=== PATIENT | female | born 1990 | race Caucasian/White ===

== ENCOUNTER 2019-04-02 10:18 | Inpatient (IN) | payer MEDICAID ==
[~2019-04-02] VITALS: Ht 165.1 cm; Wt 104.0 kg
[2019-04-02] MEDS ORDERED: PNV11TAB PO (10:55)
[2019-04-02] MEDS ORDERED: AMPICILLIN 2 GM/NS (PMX) 100 ML IV ONE ×2 (11:00→18:30)
[2019-04-02] MEDS ORDERED: OXYTOCIN 30 UNITS/LR 500 ML IV SCH ×3 (11:00→23:52)
[2019-04-02] MEDS ORDERED: LIDOCAINE 1% (MPF) 30 ML INJ INJ PRN (11:00)
[2019-04-02] MEDS ORDERED: OXYTOCIN 30 UNITS/LR 500 ML IV PRN (11:00)
[2019-04-02] MEDS ORDERED: BUTORPHANOL 2 MG INJ IV PRN ×2 (11:00)
[2019-04-02] MEDS ORDERED: MISOPROSTOL 200 MCG TAB PR PRN (11:00)
[2019-04-02] MEDS ORDERED: CARBOPROST 250 MCG INJ IM PRN (11:00)
[2019-04-02] MEDS ORDERED: METHYLERGONOVINE 0.2 MG INJ IM PRN (11:00)
--- NOTE | 2019-04-02 11:01 | HP ---
Date/Time of Note Date/Time of Note DATE: 04/02/19 TIME: 10:58 OB - History Hx of Present Free Text/Dictation 29-year-old female 1 para 0 at 38 weeks and 1 day gestation admitted complaining of spontaneous rupture of membrane which occurred at 5 AM and also complaint of a onset of uterine contractions at that time Chief Complaint: Able contractions and spontaneous rupture of membrane Last Menstrual Period: Apr 21, 2018 Estimated Due Date: Apr 15, 2019 : 1 Para: 0 Care: Good Care Ultrasounds: Normal mid trimester US Obstetrical Complications: None Medical Complications: Other Past Family/Social History * Past Medical, Surgical, Family and Obstetric Histories reviewed from chart. Blood Type: A+ Rubella: immune RPR/VDRL: Negative GBS Status: Unknown (At the time of cooker sulfate of this note) HBsAG: Negative OB Admission Exam Vital Signs Vital Signs See nurse's notes Physical Exam HEENT: WNL Heart: Rhythm Normal Lungs: Clear, Equal Abdomen: WNL Extremities: Normal Reflexes: Normal Cervical Dilatation: 4cm Effacement: 75% Station: -3 Membranes: Ruptured (Questionable) Heart Rate: 140's Accelerations: Accelerations Present Decelerations: No Decelerations Varibility: Marked Contractions on Admission: < 5 Minutes Apart Date/Time Contractions Began: 04/02/2019 at 5 AM Frequency of Contractions: Every 2 to 3 minutes Duration: Over 45 seconds Intensity: Firm OB Assessment/Plan Other Assessment: Term gestation in labor contractions with possible spontaneous rupture of membrane Other plan: Proceed with spontaneous labor KEIRA CHAHAL MD Apr 02, 2019 11:01
[2019-04-02 11:05] VITALS: Ht 165.1 cm; Wt 104.0 kg
[2019-04-02] MEDS ORDERED: LEVO75TA5 PO (11:07)
[2019-04-02] MEDS: LACTATED RINGER'S 1,000 ML IV SCH ×2 (11:21→12:30)
--- NOTE | 2019-04-02 11:54 | PREAC ---
Date/Time of Note Date/Time of Note DATE: 04/02/19 TIME: 11:53 Anesthesia Eval and Record Evaluation Time Pre-Procedure Interview DATE: 04/02/19 TIME: 11:53 Age 29 Sex female NPO: 8 hrs Preoperative diagnosis intrauterine Planned procedure labor epidural Past Medical History Past Medical History: Includes Endo: Hypothyroid : : (1), Para: (0) Surgery & Anesthesia Issues No known issue Meds Anticoagulation: No Beta Sarah within 24 hr: No Reason Beta Sarah not given: Pt. not on B-Sarah Reported Medications Levothyroxine Sodium* (Levothyroxine Sodium*) 75 Mcg Tablet, 75 MCG PO bedtime, #30 TAB 04/02/19 [id number] ( 19) 1 Each Tablet, 1 TAB PO DAILY, TAB 04/02/19 Current Medications Lactated Ringer's 1,000 ml @ 125 mls/hr Q8H IV Last administered on 04/02/19at 11:21; Admin Dose 125 MLS/HR; Start 04/02/19 at 10:52 Ampicillin 100 ml @ 100 mls/hr ONCE ONCE IV ; Start 04/02/19 at 11:00; Stop 04/02/19 at 11:59 Ampicillin 50 ml @ 100 mls/hr Q4H IV ; Start 04/02/19 at 15:00 Butorphanol Tartrate (Stadol) 1 mg Q2H PRN IV .PAIN SCALE 1-5; Start 04/02/19 at 11:00 Butorphanol Tartrate (Stadol) 2 mg Q2H PRN IV .PAIN SCALE 6-10; Start 04/02/19 at 11:00 Lidocaine (Xylocaine 1% (Mpf)) 30 ml ONCE PRN INJ .EPISIOTOMY; Start 04/02/19 at 11:00 Oxytocin/Lactated Ringer's 500 ml @ 500 mls/hr ONCE POST IV ; Start 04/02/19 at 11:00 Oxytocin/Lactated Ringer's 500 ml @ 125 mls/hr POST IV ; Start 04/02/19 at 11:00 Oxytocin/Lactated Ringer's 500 ml @ 0 mls/hr ONCE PRN IV .VAGINAL BLEEDING; Start 04/02/19 at 11:00 Methylergonovine Maleate (Methergine) 0.2 mg ONCE PRN IM .VAGINAL BLEEDING; Start 04/02/19 at 11:00 Carboprost Tromethamine (Hemabate) 250 mcg ONCE PRN IM .VAGINAL BLEEDING; Start 04/02/19 at 11:00 Misoprostol (Cytotec) 1,000 mcg ONCE PRN NC .VAGINAL BLEEDING; Start 04/02/19 at 11:00 Meds reviewed: Yes Allergies Coded Allergies: No Known Allergy (Unverified , 04/02/19) Allergies Reviewed: Yes Labs/Studies Labs Reviewed: Reviewed by anesthesiologist Result Diagram: 04/02/19 1130 Laboratory Tests 04/02/19 11:30 test: N/A Pre-procedure Exam Airway: Adequate mouth opening, Adequate thyromental dist Mallampati: Mallampati II Teeth: Normal Lung: Normal Heart: Normal ASA Physical Status ASA physical status: 2 Emergency: None Planned Anesthetic Neuraxial: Epidural Planned Pain Management Epidural, Parenteral pain med Pre-operative Attestations Prior to commencing anesthesia and surgery, the patient was re-evaluated, there was verification of: *The patient's identity *The results of appropriate recent lab work and preoperative vital signs *The above evaluation not changing prior to induction *Anesthetic plan, risk benefits, alternative and complications discussed with patient/family; questions answered; patient/family understands, accepts and wishes to proceed. REGINE LIMA MD Apr 02, 2019 11:54
[2019-04-02] MEDS ORDERED: FENTAnyl 2MCG/ML-ROPIV 0.2% 100 ML ONE (12:05)
--- NOTE | 2019-04-02 12:35 | PAC ---
Date/Time of Note Date/Time of Note DATE: 04/02/19 TIME: 12:35 Post-Anesthesia Notes Post-Anesthesia Note Activity: WNL Respiratory function: WNL Cardiovascular function: WNL Mental status: Baseline Pain reasonably controlled: Yes Hydration appropriate: Yes Nausea/Vomiting absent: Yes Comments BP: 122/63 HR: 90 RR: 16 T: 98 SaO2: 99% REGINE LIMA MD Apr 02, 2019 12:35
[2019-04-02] MEDS ORDERED: DIPHENHYDRAMINE 50 MG INJ IV PRN (13:00)
[2019-04-02] MEDS ORDERED: ONDANSETRON 4 MG INJ IV PRN (13:00)
[2019-04-02] MEDS ORDERED: FENTAnyl 2MCG/ML-ROPIV 0.2% 100 ML BAG EPI SCH (13:00)
[2019-04-02] MEDS ORDERED: NALOXONE (0.4 MG/ML) INJ IV PRN (13:00)
[2019-04-02] MEDS ORDERED: MINERAL OIL LIGHT 10 ML VIAL TOP ONE (13:30)
[2019-04-02] MEDS ORDERED: AMPICILLIN 1 GM/NS (PMX) 50 ML IV SCH ×2 (15:00→22:30)
--- NOTE | 2019-04-02 21:20 | LDN ---
Date/Time of Note Date/Time of Note DATE: 04/02/19 TIME: 21:17 Delivery Summary Weeks of Gestation Term gestation Placenta Delivered: Spontaneously Meconium: none Episiotomy: No Laceration repair: First-degree laceration repair with 3-0 chromic Anesthesia type: Epidural Estimated blood loss: 250 Sponge & Needle done & correct: Yes All needle counts correct: Yes Any foreign bodies felt in the: No Delivery Information Sex Sex: female Apgars 1 Minute: 8 5 Minute: 9 Suctioning Nose & mouth suctioned at jeni: Yes Delee suction performed: No Umbilical Cord Umbilical cord with: 3 Vessels Cord presentations: nuchal cord (X1 around the neck manually reduced) Cord Blood was obtained: Yes Mother & Baby Disposition Disposition Baby's weight 8 pounds 6 ounces/ 3790 g Patient received Methergine IM x1 dose and Cytotec 1000 mcg per rectum for uterine atony Mom & Baby to Maternity; Good: Yes Baby to NICU: No Copies To: CC: KEIRA CHAHAL MD ; MAURICE CARTER MD Apr 02, 2019 21:20
[2019-04-02 22:45] VITALS: BP 115/56; PULSE 110; RESP 19
[2019-04-02] MEDS: LACTATED RINGER'S 1,000 ML IV* SCH (23:52)
[2019-04-03] MEDS ORDERED: SENNA/DOCUSATE NA (8.6MG/50MG) TAB PO PRN
[2019-04-03] MEDS ORDERED: CARBOPROST 250 MCG INJ IM PRN
[2019-04-03] MEDS ORDERED: METHYLERGONOVINE 0.2 MG INJ IM PRN
[2019-04-03] MEDS ORDERED: MISOPROSTOL 200 MCG TAB PR PRN
[2019-04-03] MEDS ORDERED: OXYTOCIN 30 UNITS/LR 500 ML IV PRN
[2019-04-03] MEDS ORDERED: DIBUCAINE 1% 30 GM OINT TOP PRN
[2019-04-03] MEDS ORDERED: ACETAMINOPHEN 325 MG TAB PO PRN ×2
[2019-04-03] MEDS ORDERED: BENZOCAINE 20% 56 ML SPRAY TOP PRN
[2019-04-03] MEDS ORDERED: WITCH HAZEL/GLYCERIN PAD PR PRN
[2019-04-03] MEDS ORDERED: LANOLIN HPA 1 PKT TOP PRN
[2019-04-03] MEDS ORDERED: MAGNESIUM HYDROXIDE 30ML CUP PO PRN
[2019-04-03] MEDS ORDERED: ONDANSETRON 4 MG INJ IV PRN
[2019-04-03] MEDS ORDERED: LEVOTHYROXINE 75 MCG TAB PO ONE
[2019-04-03 00:20] VITALS: BP 112/66; PULSE 111; RESP 18
[2019-04-03] MEDS: IBUPROFEN 600 MG TAB PO PRN ×4 (00:28→23:51)
[2019-04-03 03:45] VITALS: BP 116/57; PULSE 97; RESP 17
[2019-04-03 07:45] VITALS: BP 107/53; PULSE 94; RESP 18
[2019-04-03] MEDS: LACTATED RINGER'S 1,000 ML IV* SCH ×2 (07:52→15:52)
[2019-04-03] MEDS ORDERED: IBUP-1542 PO (13:55)
--- NOTE | 2019-04-03 14:57 | DS ---
Date/Time of Note Date/Time of Note Home today or next day DATE: 04/03/19 TIME: 14:56 Obstetrical Discharge Record Final Diagnosis Final Diagnosis: Term delivered Other Final Diagnosis Status post vaginal delivery Vaginal Delivery Obstetrical Delivery: Spontaneous, Laceration, Repaired Condition on Discharge Physical Assessment Last Vitals: See nurse's notes Voiding: Yes Bowel Movement: Yes Breast: Soft, non-tender, Filling Fundus: Firm Abdomen and Incision: Abdomen is soft with firm fundus abdomen appears nontender Episiotomy: Perineum is healing well and appears clean Calf Tenderness: No Patient Condition: Good KEIRA CHAHAL MD Apr 03, 2019 14:57
--- NOTE | 2019-04-03 14:58 | PD.PPDC ---
FINISH FILER Discharge Instruction Provider Information Physician Information 29-year-old female had vaginal delivery Diagnosis [id number] Final Diagnosis: [id number] Status post vaginal delivery Condition [id number] Patient Condition: Meveg9i Good Diet Gaulx1Fu Diet: [id number] Resume Regular Diet Activity/Restrictions [id number] Activity: Zgivv6u Normal Activity May Shower [id number] Restrictions: Fmqpd2r Nothing in the Vagina Nctue5Sm Return to Work or School: [id number] May 10, 2019 Follow-up Follow-up with Physician: 2, 4, Week/Weeks (In clinic) Return to clinic for [id number] OB Instructions: Vyenr1r Breast Tenderness Depression Comment: Pelvic rest for 6 weeks KEIRA CHAHAL MD Apr 03, 2019 14:58
[2019-04-03 15:45] VITALS: BP 114/77; PULSE 89; RESP 18
[2019-04-03] MEDS: CEPHALEXIN 500 MG CAP PO SCH ×2 (18:19→23:51)
[2019-04-03 20:45] VITALS: BP 123/74; PULSE 87; RESP 17
[2019-04-03] MEDS ORDERED: LEVOTHYROXINE 75 MCG TAB PO SCH (21:00)
[2019-04-04 04:03] VITALS: BP 121/66; PULSE 91; RESP 18
[2019-04-04] MEDS: IBUPROFEN 600 MG TAB PO PRN (05:41)
[2019-04-04] MEDS: CEPHALEXIN 500 MG CAP PO SCH (05:41)
[2019-04-04 08:00] VITALS: BP 107/60; PULSE 77; RESP 18
--- NOTE | 2019-04-05 15:30 | DELSUM ---
Delivery Summary A-C Datetime Report Generated by CPN: 04/05/2019 15:29 DELIVERY PERSONNEL Cigarette Tester: Danielle Caban MATERNAL INFORMATION Delivery Anesthesia: Epidural Medications in Delivery: 30U PITOCIN LR 500 ML, 0.2MG METHERGINE, 1000 MCG CYTOTEC Delivery QBL (ml): 250 Placenta Cultured: No Maternal Complications: Other Other Maternal Complications: hypothyroid LABOR SUMMARY EDC: 04/15/2019 00:00 No. Babies in Womb: 1 Attempted: No Labor Anesthesia: Epidural LABOR INFORMATION Reason for Induction: Not Applicable Onset of Labor: 04/02/2019 05:00 Complete Dilatation: 04/02/2019 18:02 Oxytocin: N/A Group B Beta Strep: Negative Antibiotics # of Doses: 1 Antibiotics Time of Last Dose: 04/02/2019 18:40 Steroids Given: None Reason Steroids Not Administered: Not Applicable MEMBRANES Membranes Rupture Method: Spontaneous Rupture of Membranes: 04/02/2019 05:00 Length of Rupture (hr): 15.65 Amniotic Fluid Color: Clear Amniotic Fluid Amount: Moderate Amniotic Fluid Odor: Normal STAGES OF LABOR Stage 1 hr: 13 Stage 1 min: 2 Stage 2 hr: 2 Stage 2 min: 37 Stage 3 hr: 0 Stage 3 min: 4 Total Time in Labor hr: 15 Total Time in Labor min: 43 VAGINAL DELIVERY Episiotomy: None Laceration Extension: First Degree Laceration Type: Perineal Laceration Repair: Yes Initial Vag Sponge Count: 10 Final Vag Sponge Count: 10 Initial Vag Sharps Count: 1 Final Vag Sharps Count: 2 Sponge Count Correct: Yes; Vaginal Sweep Performed Sharps Count Correct: Yes BABY A INFORMATION Infant Delivery Date/Time: 04/02/2019 20:39 Method of Delivery: Vaginal Born in Route : No : N/A Forceps: N/A Vacuum Extraction: N/A Shoulder Dystocia : N/A SHOULDER DYSTOCIA BABY A Delivery Date/Time: 04/02/2019 20:39 PRESENTATION/POSITION BABY A Presentation: Cephalic Cephalic Presentation: Vertex Vertex Position: Left Occipital Anterior Breech Presentation: N/A PLACENTA INFORMATION BABY A Placenta Delivery Time : 04/02/2019 20:43 Placenta Method of Delivery: Spontaneous Placenta Status: Delivered SCORES BABY A Heart Rate 1 min: >100 bpm Resp Effort 1 min: Good Cry Reflex Irritability 1 min: Cough/Sneeze/Pulls Away Muscle Tone 1 min: Active Motion Color 1 min: Blue/Pale Resuscitation Effort 1 min: Tactile Stimulation SCORE 1 MIN: 8 Heart Rate 5 min: >100 bpm Resp Effort 5 min: Good Cry Reflex Irritability 5 min: Cough/Sneeze/Pulls Away Muscle Tone 5 min: Active Motion Color 5 min: Body [place], Extremit Blue Resuscitation Effort 5 min: Tactile Stimulation SCORE 5 MIN: 9 INFORMATION BABY A Gestational Age at Delivery: 38.1 Gestational Status: Early Term- 37- 38.6 Weeks Outcome : Liveborn Infant Condition : Stable Infant Sex: Female IDENTIFICATION/MEDS BABY A ID Band Number: [id number] ID Band Location: Right Leg; Left Arm Sensor Applied: Yes Sensor Number: [id number] Sensor Location : Cord Clamp Vitamin K Given : Not Given Erythromycin Given: Not Given WEIGHT/LENGTH BABY A Birthweight (gm): 3790 Weight (lb): 8 Infant Weight (oz): 6 Length (in): 19.50 Infant Length (cm): 49.53 CORD INFORMATION BABY A No. Cord Vessels: 3 Nuchal Cord : Around Neck x1, Loose Cord Blood Taken: Yes Banking/Donate Info: no Suction: Mouth; Nose ASSESSMENT BABY A Infant Complications: None Physical Findings at Delivery: Within Normal Limits Infant Respirations: Appears Normal Artificial Cherry Maker/ALS Called : No Care By: MONIQUE Transferred To: Remains with Mother
== END 2019-04-04 13:47 | disposition home or self-care (01) | DRG 807 ==
LOC: OBT 10:18 → L-D 10:19 → OBT 10:50 → L-D 10:50 → PP1 22:34
PROVIDERS: ADMIT Obstetrics & Gynecology; ATTEND Obstetrics & Gynecology
PROC: 10E0XZZ Delivery of Products of Conception, External Approach (ICD-10-PCS; principal; 2019-04-02)
PROC: 0HQ9XZZ Repair Perineum Skin, External Approach (ICD-10-PCS; 2019-04-02)
DX: O70.0 First degree perineal laceration during delivery (principal); Z37.0 Single live birth; O69.81X0 Labor and delivery complicated by cord around neck, without compression, not applicable or unspecified; O99.284 Endocrine, nutritional and metabolic diseases complicating childbirth; E03.9 Hypothyroidism, unspecified; Z3A.38 38 weeks gestation of pregnancy
CPT/HCPCS: 62322; 84112; 85025; 85610; 85730; 86592; 86850; 86900; 86901; 87340; 99464; G0463; J0290; J2210; J2590; J3010; J7120